=== PATIENT | male | born 2000 | race African-American/Black ===

== ENCOUNTER 2024-10-14 08:54 | Inpatient (IN) | payer BC ==
[2024-10-14] MEDS ORDERED: traMADol HCl 50 MG TAB PO PRN (09:42)
[2024-10-14] MEDS ORDERED: Bisacodyl 5 MG TAB PO PRN (09:42)
[2024-10-14] MEDS ORDERED: Acetaminophen 325 MG TAB PO PRN (09:42)
[2024-10-14] MEDS ORDERED: Acetaminophen 650 MG Suppository PR PRN (09:42)
[2024-10-14] MEDS ORDERED: Ondansetron PF 4 MG/2 ML Vial IVP PRN (09:42)
[2024-10-14] MEDS ORDERED: Bisacodyl 10 MG SUPP PR PRN (09:42)
[2024-10-14] MEDS ORDERED: Senokot S 8.6-50 MG TAB PO PRN (09:42)
[2024-10-14] MEDS ORDERED: Morphine 2 MG/ML VIAL SLOW IVP PRN (09:43)
[2024-10-14] MEDS ORDERED: Piperacillin/Tazobactam 4.5 GM in Sodium Chloride 0.9% 100 ML IVPB SCH (12:00)
[2024-10-14 13:26] VITALS: BMI 32.6
[2024-10-14] MEDS: Piperacillin/Tazobactam 3.375 GM in Sodium Chloride 0.9% 100 ML IVPB SCH (13:34)
[2024-10-14] MEDS: Lactated Ringer's 1,000 ML IV SCH (13:48)
[2024-10-14] MEDS ORDERED: Piperacillin/Tazobactam 3.375 GM in Sodium Chloride 0.9% 100 ML IVPB SCH (17:00)
[2024-10-15 03:47] LABS: #Basophils Less than 0.03 10x3/uL (0.0-0.2); #Eosinophils Less than 0.03 10x3/uL (0.0-0.7); %Basophils 0.1 % (0.0-1.0); %Eosinophils 0.2 % (0.0-10.0); %Lymphocytes 8.6 % (21.0-51.0); %Monocytes 7.2 % (0.0-10.0); %Neutrophils 83.7 % (42.0-75.0); Hematocrit 38.5 % (42.0-52.0); Mean Corpuscular HGB CONC 33.8 g/dL (32.0-36.0); Mean Corpuscular Hemoglobin 32.2 pg (27.0-31.0); Mean Corpuscular Volume 95.3 fL (78.0-98.0); Mean Platelet Volume 10.2 fL (7.4-10.4); Platelet Count 238 10x3/uL (130-400); RBC Distribution Width 11.1 % (11.5-14.5); Red Blood Cell (RBC) Count 4.04 mill/uL (4.70-6.10)
[2024-10-15 04:14] LABS: ALT (SGPT) 31 U/L (8-55); AST (SGOT) 27 U/L (5-34); Albumin 3.7 g/dL (3.5-5.0); Alkaline Phosphatase 55 U/L (40-110); Anion Gap 13 mmol/L (10-20); BUN (Urea Nitrogen) 11 mg/dL (8.9-20.6); Bilirubin, Total 1.6 mg/dL (0.2-1.2); Calc. Creatinine Clearance 143 mL/min (70-130); Calcium 8.7 mg/dL (7.8-10.44); Carbon Dioxide 23 mmol/L (22-29); Chloride 105 mmol/L (98-107); Estimated GFR 97; Globulin 3.1 g/dL (2.4-3.5); Glucose 91 mg/dL (70-105); Magnesium 1.8 mg/dL (1.6-2.6); Potassium 3.7 mmol/L (3.5-5.1); Protein, Total 6.8 g/dL (6.0-8.3); Sodium 137 mmol/L (136-145)
[2024-10-15] MEDS: Aspirin Chewable 81 MG TAB PO SCH (09:27)
[2024-10-15 15:52] VITALS: BP 149/82; TEMP 98.5
[2024-10-15 18:11] LABS: Campy jejuni + coli by PCR Negative (Negative); STEC Shiga Toxin 1+2 Negative (Negative); Salmonella spp. by PCR Negative (Negative); Shigella spp + EIEC by PCR Negative (Negative)
== END 2024-10-15 17:30 | disposition home or self-care (01) | DRG 392 ==
LOC: PCU 08:54
PROVIDERS: ADMIT Family Medicine; ATTEND Internal Medicine
DX: A08.4 Viral intestinal infection, unspecified (principal); J93.83 Other pneumothorax; N17.9 Acute kidney failure, unspecified; E86.0 Dehydration; I34.0 Nonrheumatic mitral (valve) insufficiency; I07.1 Rheumatic tricuspid insufficiency; R94.31 Abnormal electrocardiogram [ECG] [EKG]; F12.90 Cannabis use, unspecified, uncomplicated; Z71.51 Drug abuse counseling and surveillance of drug abuser
CPT/HCPCS: 36415; 71045; 71275; 74177; 76705; 80053; 80306; 83036; 83605; 83630; 83690; 83735; 83880; 84443; 84484; 85025; 85610; 85730; 86708; 86850; 86900; 86901; 87040; 87428; 87505; 93005; 93306; 94760; J2270; J2405; J2543; Q9967